=== PATIENT | female | born 1985 | race Caucasian/White ===

== ENCOUNTER 2016-08-16 01:14 | Emergency (ER) | payer OTHER ==
[~2016-08-16] VITALS: Ht 162.6 cm; Wt 74.9 kg
[~2016-08-16 01:14] MED LIST: LORTAB 5-325 M1 EACH PO; TORADOL10 MG PO; TRAMADOL HCL50 MG PO
[2016-08-16] MEDS ORDERED: CEFDINIR300 MG PO (02:30)
[2016-08-16 02:49] VITALS: BP 122/74
== END 2016-08-16 02:49 | disposition home or self-care (01) ==
LOC: EXP 01:14 → EME 01:14 → EXP 02:49
DX: H66.91 Otitis media, unspecified, right ear (principal); J02.9 Acute pharyngitis, unspecified
CPT/HCPCS: 99281; 99284

== ENCOUNTER 2016-09-29 22:20 | Emergency (ER) | payer OTHER ==
[~2016-09-29] VITALS: Ht 162.6 cm; Wt 76.5 kg
[~2016-09-29 22:20] MED LIST changes: +CEFDINIR300 MG PO
[2016-09-30] MEDS ORDERED: NAPROXEN500 MG PO
[2016-09-30] MEDS ORDERED: ZITHROMAX Z-PA250 MG PO (00:12)
[2016-09-30 00:33] VITALS: BP 114/77
== END 2016-09-30 00:34 | disposition home or self-care (01) ==
LOC: EME 22:20
PROVIDERS: Physician Assistant
DX: S76.912A Strain of unspecified muscles, fascia and tendons at thigh level, left thigh, initial encounter (principal); W18.2XXA Fall in (into) shower or empty bathtub, initial encounter; Y93.E1 Activity, personal bathing and showering; F17.200 Nicotine dependence, unspecified, uncomplicated
CPT/HCPCS: 85379; 99281; 99283

== ENCOUNTER 2017-07-10 15:18 | Emergency (ER) | payer OTHER ==
[~2017-07-10] VITALS: Ht 162.6 cm; Wt 79.0 kg
[~2017-07-10 15:18] MED LIST changes: +NAPROXEN500 MG PO; +ZITHROMAX Z-PA250 MG PO
[2017-07-10 16:05] VITALS: BP 116/72
== END 2017-07-10 16:05 | disposition home or self-care (01) ==
LOC: EME 15:18 → RME 15:18
DX: S39.012A Strain of muscle, fascia and tendon of lower back, initial encounter (principal); V49.40XA Driver injured in collision with unspecified motor vehicles in traffic accident, initial encounter; Y92.481 Parking lot as the place of occurrence of the external cause; Z88.2 Allergy status to sulfonamides; Z88.0 Allergy status to penicillin
CPT/HCPCS: 99281; 99283

== ENCOUNTER 2017-08-13 13:42 | Emergency (ER) | payer OTHER ==
[~2017-08-13] VITALS: Ht 162.6 cm; Wt 78.1 kg
[2017-08-13] MEDS ORDERED: PREDNISONE20 MG PO (16:56)
[2017-08-13] MEDS ORDERED: VENTOLIN HFA18 GM IH (16:56)
[2017-08-13 17:00] VITALS: BP 122/76
== END 2017-08-13 17:00 | disposition home or self-care (01) ==
LOC: EME 13:42
DX: J20.9 Acute bronchitis, unspecified (principal); Z88.0 Allergy status to penicillin; Z88.2 Allergy status to sulfonamides; F17.200 Nicotine dependence, unspecified, uncomplicated
CPT/HCPCS: 71046; 94640; 99281; 99284; J7512